=== PATIENT | female | born 1950 | race Caucasian/White ===

== ENCOUNTER 2022-07-22 08:47 | Outpatient (CLI) | payer OTHER | END 2022-07-22 08:48 | disposition home or self-care (01) | LOC: CSHMAMMO 08:47 | PROVIDERS: ATTEND Family Medicine | DX: Z12.31 Encounter for screening mammogram for malignant neoplasm of breast (principal); N63.21 Unspecified lump in the left breast, upper outer quadrant; Z98.890 Other specified postprocedural states; Z85.3 Personal history of malignant neoplasm of breast; Z80.3 Family history of malignant neoplasm of breast | CPT/HCPCS: 77063; 77067 ==

== ENCOUNTER 2022-08-23 17:57 | Observation (INO) | payer OTHER ==
[2022-08-23 18:59] LABS: ALT (SGPT) 16 U/L (8-55); AST (SGOT) 20 U/L (5-34); Albumin 4.3 g/dL (3.4-4.8); Alkaline Phosphatase 77 U/L (40-110); Anion Gap 16 mmol/L (10-20); BUN (Urea Nitrogen) 25 mg/dL (9.8-20.1); Bilirubin, Total 0.4 mg/dL (0.2-1.2); Calc. Creatinine Clearance 0 mL/min (70-130); Carbon Dioxide 24 mmol/L (23-31); Chloride 101 mmol/L (98-107); Estimated GFR 56; Globulin 3.1 g/dL (2.4-3.5); Glucose 93 mg/dL (83-110); Potassium 3.9 mmol/L (3.5-5.1); Protein, Total 7.4 g/dL (5.8-8.1); Sodium 137 mmol/L (136-145)
[2022-08-23 19:00] LABS: #Basophils 0.1 10x3/uL (0.0-0.2); #Eosinphils 0.6 10x3/uL (0.0-0.5); #Monocytes 0.5 10x3/uL (0.0-1.1); #Neutrophils 3.7 10x3/uL (1.5-8.4); %Basophils 0.9 % (0.0-2.0); %Eosinophils 7.4 % (0.0-6.0); %Lymphocytes 37.2 % (18.0-47.0); %Monocytes 6.4 % (0.0-10.0); %Neutrophils 46.2 % (40.0-75.0); Hemoglobin 12.1 g/dL (12.0-15.5); Mean Corpuscular HGB CONC 33.4 g/dL (32.0-36.0); Mean Corpuscular Hemoglobin 28.5 pg (27.0-33.0); Mean Corpuscular Volume 85.4 fl (81.6-98.3); Mean Platelet Volume 9.2 fl (7.4-10.4); Platelet Count 402 10x3/uL (150-450); RBC Distribution Width 13.3 % (11.5-14.5); Red Blood Cell (RBC) Count 4.24 10x6/uL (3.90-5.03)
[2022-08-23] MEDS ORDERED: Calcium Carbonate 500 MG ChewTAB PO PRN (20:39)
[2022-08-23] MEDS ORDERED: Acetaminophen 325 MG TAB PO PRN (20:39)
[2022-08-23] MEDS ORDERED: Ondansetron PF 4 MG/2 ML Vial IVP PRN (20:39)
[2022-08-23] MEDS ORDERED: Senokot S 8.6-50 MG TAB PO PRN (20:39)
[2022-08-23] MEDS ORDERED: Nitroglycerin 0.4 MG TAB (25 Tab Bottle) SL PRN (20:41)
[2022-08-23] MEDS ORDERED: Atorvastatin Calcium 10 MG TAB PO SCH (23:00)
[2022-08-23] MEDS ORDERED: Lactated Ringer's 500 ML IV SCH (23:00)
[2022-08-23] MEDS ORDERED: Metoprolol Tartrate 25 MG TAB PO SCH (23:00)
[2022-08-23 23:55] VITALS: BMI 29.2
[2022-08-23] MEDS ORDERED: Gabapentin 100 MG CAP PO SCH (23:59)
[2022-08-24 04:43] LABS: Anion Gap 17 mmol/L (10-20); BUN (Urea Nitrogen) 21 mg/dL (9.8-20.1); Calc. Creatinine Clearance 58 mL/min (70-130); Calcium 8.9 mg/dL (7.8-10.44); Carbon Dioxide 24 mmol/L (23-31); Chloride 104 mmol/L (98-107); Estimated GFR 62; Glucose 91 mg/dL (83-110); Potassium 3.9 mmol/L (3.5-5.1); Sodium 141 mmol/L (136-145)
[2022-08-24] MEDS ORDERED: Levothyroxine Sodium 25 MCG TAB PO SCH (06:00)
[2022-08-24] MEDS ORDERED: Ergocalciferol 1.25 MG(50,000 UNITS) CAP PO SCH (09:00)
[2022-08-24] MEDS: Venlafaxine HCl XR 75 MG CAP PO SCH (09:55)
[2022-08-24] MEDS: Metoprolol Tartrate 25 MG TAB PO SCH ×2 (09:56→21:41)
[2022-08-24] MEDS: Gabapentin 100 MG CAP PO SCH ×3 (09:56→21:41)
[2022-08-24] MEDS: Aspirin 81 mg Enteric Coated Tablet PO SCH (09:59)
[2022-08-24] MEDS ORDERED: Atorvastatin Calcium 10 MG TAB PO SCH (21:00)
[2022-08-25] MEDS ORDERED: Levothyroxine Sodium 75 MCG TAB PO SCH (06:00)
[2022-08-25] MEDS: Metoprolol Tartrate 25 MG TAB PO SCH (09:05)
[2022-08-25] MEDS: Gabapentin 100 MG CAP PO SCH (09:05)
[2022-08-25] MEDS: Aspirin 81 mg Enteric Coated Tablet PO SCH (09:05)
[2022-08-25] MEDS: Venlafaxine HCl XR 75 MG CAP PO SCH (09:05)
[2022-08-25 13:14] VITALS: BP 132/62; TEMP 98.4
== END 2022-08-25 14:15 | disposition home or self-care (01) ==
LOC: CSHERS 17:57 → CSHTELE 22:00
PROVIDERS: ADMIT Student in an Organized Health Care Education/Training Program; ATTEND Family Medicine
DX: R07.89 Other chest pain (principal); I44.7 Left bundle-branch block, unspecified; R53.83 Other fatigue; K21.9 Gastro-esophageal reflux disease without esophagitis; I11.0 Hypertensive heart disease with heart failure; I50.21 Acute systolic (congestive) heart failure; F41.9 Anxiety disorder, unspecified; F32.A Depression, unspecified; E55.9 Vitamin D deficiency, unspecified; R73.03 Prediabetes; E78.5 Hyperlipidemia, unspecified; E03.9 Hypothyroidism, unspecified; R79.89 Other specified abnormal findings of blood chemistry; Z85.3 Personal history of malignant neoplasm of breast; Z90.49 Acquired absence of other specified parts of digestive tract; Z79.899 Other long term (current) drug therapy; Z88.0 Allergy status to penicillin; Z79.82 Long term (current) use of aspirin
CPT/HCPCS: 36415; 71045; 80048; 80053; 83880; 84443; 84484; 85025; 85379; 93005; 93306; 96372; G0378; J1650; J7120

== ENCOUNTER 2024-07-09 19:52 | Emergency (ER) | payer OTHER ==
[~2024-07-09 19:52] MED LIST: Iopamidol 370 76% 100 ML VIAL ONE
[2024-07-09] MEDS ORDERED: Ondansetron PF 4 MG/2 ML Vial ONE (20:26)
[2024-07-09] MEDS ORDERED: Aspirin 325 MG TAB ONE (20:26)
[2024-07-09] MEDS ORDERED: Famotidine/PF 20 mg/2ml Vial ONE (20:30)
[2024-07-09 20:41] LABS: #Basophils 0.06 10x3/uL (0.0-0.2); #Monocytes 0.43 10x3/uL (0.0-1.1); %Basophils 0.9 % (0.0-2.0); %Eosinophils 4.3 % (0.0-6.0); %Lymphocytes 26.5 % (18.0-47.0); %Monocytes 6.1 % (0.0-10.0); %Neutrophils 61.3 % (40.0-75.0); Hematocrit 37.9 % (34.9-44.5); Hemoglobin 12.6 g/dL (12.0-15.5); Mean Corpuscular HGB CONC 33.2 g/dL (32.0-36.0); Mean Corpuscular Hemoglobin 28.8 pg (27.0-33.0); Mean Corpuscular Volume 86.5 fL (81.6-98.3); Mean Platelet Volume 9.5 fL (7.4-10.4); Platelet Count 353 10x3/uL (150-450); RBC Distribution Width 13.3 % (11.5-14.5); Red Blood Cell (RBC) Count 4.38 10x6/uL (3.90-5.03); White Blood Cell (WBC) Count 7.01 10x3/uL (3.5-10.5)
[2024-07-09 20:57] LABS: ALT (SGPT) 16 U/L (Less than 34); AST (SGOT) 22 U/L (11-34); Albumin 4.3 g/dL (3.1-4.5); Alkaline Phosphatase 62 U/L (40-110); Anion Gap 16 mmol/L (10-20); BUN (Urea Nitrogen) 21 mg/dL (9.8-20.1); Bilirubin, Total 0.4 mg/dL (0.3-1.2); Calc. Creatinine Clearance 0 mL/min (70-130); Calcium 9.6 mg/dL (7.8-10.44); Carbon Dioxide 23 mmol/L (23-31); Chloride 104 mmol/L (98-107); Estimated GFR 54; Globulin 3.8 g/dL (2.4-3.5); Glucose 123 mg/dL (83-110); Lipase 23 U/L (8-78); Magnesium 2.2 mg/dL (1.6-2.6); Potassium 4.2 mmol/L (3.5-5.1); Protein, Total 8.1 g/dL (5.8-8.1); Sodium 139 mmol/L (136-145)
[2024-07-09 20:59] LABS: Troponin I Less than 0.010 ng/mL (< 0.028)
[2024-07-09 21:22] LABS: Bilirubin Neg (Negative); Blood, Urine 25 (Negative); Clarity Clear (Clear); Glucose, Urine (Dipstick) Normal (Negative); Ketone, Urine Negative (Negative); Leukocyte 100 (Negative); Nitrite Negative (Negative); Protein, Urine (Dipstick) 30 mg/dl (Neg-Trace); Specific Gravity, Urine 1.015 (1.005-1.030)
[2024-07-09 21:38] LABS: Bacteria/HPF 2+ HPF (None Seen); CAUTI Indications for Culture Pelvic or flank pain; RBC/HPF 0-3 HPF (0-3); Squamous Epithelial 0-3 HPF (0-3); Transitional Epithelial 0-3 HPF (None Seen)
[2024-07-09 21:39] LABS: Urine Culture Reflex No No
[2024-07-09 22:56] LABS: Troponin I Less than 0.010 ng/mL (< 0.028)
== END 2024-07-09 23:11 | disposition home or self-care (01) ==
LOC: CSHERS 19:52
DX: R10.13 Epigastric pain (principal); K21.9 Gastro-esophageal reflux disease without esophagitis; I10 Essential (primary) hypertension; E78.5 Hyperlipidemia, unspecified; Z79.899 Other long term (current) drug therapy
CPT/HCPCS: 71045; 74177; 80053; 81001; 83690; 83735; 83880; 84484 ×2; 85025; 93005; J2405; J3490; 96374; 96375; Q9967